=== PATIENT | male | born 1995 | race Caucasian/White ===

== ENCOUNTER 2017-11-30 19:51 | Emergency (ER) | payer SELFPAY ==
[2017-11-30 19:52] VITALS: BP 135/78; PULSE 119; RESP 20; TEMP 36.7; O2SAT 99; BMI 25.4
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
[2017-11-30] MEDS: Acetaminophen 500 MG Tablet 1000 MG PO (21:42)
[2017-11-30 21:43] VITALS: PULSE 73; RESP 16; O2SAT 100
--- NOTE | 2017-11-30 21:45 | ED.RN ---
THIS NURSE REVIEWED D/C INSTRUCTIONS WITH PT AND FAMILY. PT VERBALIZED UNDERSTANDING OF INSTRUCTIONS. PT DENIES FURTHER NEEDS OR QUESTIONS AT THIS TIME. PT AMBULATES FROM ROOM ON OWN WITHOUT ASSISTANCE FROM STAFF
== END 2017-11-30 21:46 | disposition home or self-care (01) ==
LOC: ED 21:15
PROVIDERS: Emergency Provider Emergency Medicine; Family Provider Pediatrics; PCP Pediatrics
DX: S70.11XA Contusion of right thigh, initial encounter (principal); V19.9XXA Pedal cyclist (driver) (passenger) injured in unspecified traffic accident, initial encounter; Y93.9 Activity, unspecified; Y92.9 Unspecified place or not applicable; J45.909 Unspecified asthma, uncomplicated
CPT/HCPCS: 73552; 99283

== ENCOUNTER 2019-05-04 18:06 | Emergency (ER) | payer BC, SELFPAY ==
[2019-05-04 18:07] VITALS: BP 143/85; PULSE 92; RESP 16; TEMP 36.6; O2SAT 100; BMI 25.0
--- NOTE | 2019-05-04 19:00 | ED.DCSUM_ITS ---
History of Present Illness Chief Complaint: Eye Problem Informant: Patient Location: Left Eye Onset: Yesterday Context: Sudden Onset Timing: Continuous Associated Symptoms - Eyes: Foreign body sensation, Pain, Redness History of injury: Uncertain Visual correction: None Narrative: Is a 23-year-old male with history of superior mesenteric artery syndrome resenting with left eye pain. Patient states he is been doing a lot of renovations on his house and fell like he got something in his eye last night. He rinsed it out a couple times. Patient states he went to bed even though was still hurting him. He is continued to have a foreign body sensation and pain in his eye. He states it feels like there something moving at the bottom of his eye. He does not wear corrective lenses. He does not have an eye doctor. Denies any other complaints or concerns at this time. He denies any vision changes. Past Medical History - Allergies and Home Meds Allergies/Adverse Reactions: Allergies No Known Allergies Allergy (Verified 05/04/19 18:09) Primary Care Physician: Feliz Hernández MD [STAFF PHYSICIAN] - Sam Amin MD [Primary Care Provider] - Past Medical History: None Surgical History: noncontributory Lives: With Family Smoking Status: Never smoker Review of Systems General: Denies: Chills, Fever, Sweats Eyes: Reports: - - left eye pain. Denies: Visual changes - bilaterally, Diplopia ENT: Denies: Rhinorrhea, Sore throat Cardiovascular: Denies: Chest pain, Palpitations Respiratory: Denies: Dyspnea, Cough, Dyspnea on exertion Gastrointestinal: Denies: Nausea, Vomiting Skin: Denies: Rash, Wounds Neurological: Denies: Headache, Weakness, Numbness Physical Exam Visual Acuity: right: 20/15, left: 20/20 Visual Acuity: Uncorrected Eyelid: No foreign body, Erythema left eyelid Right Conjunctiva/Sclera: Normal inspection, No foreign body Left Conjunctiva/Sclera: No foreign body, Diffuse focal injection Left Cornea: Tetracaine instilled, Fluorescein dye uptake, Foreign body - over iris at 9 O'clock position , - - negative Layla sign Extraocular Motion: Normal exam, No pain Pupils: Normal accomodation, PERRL Anterior chamber: Normal exam Vital Signs/Narrative: Vital Signs Temp Pulse Resp BP Pulse Ox 05/04/19 18:07 97.8 F 92 16 143/85 H 100 General: Well nourished, Well developed Head: Normocephalic, Atraumatic ENT: Moist mucous membranes, No rhinorrhea Neck: Supple, Nontender Cardiovascular: Regular rate, Regular rhythm, No murmurs Respiratory: No distress, CTA bilaterally, Chest nontender Skin: Normal color, No rash Neurological: Alert, Oriented x3, Cranial nerves II-XII grossly intact, Normal Strength, Normal Sensation Psychological: Normal affect Diagnostic/Tx/Re-eval - Treatment and Re-Evaluation Foreign body removal: Cotton tip swab Residual rust ring: Yes Removed with eye jed: No Tetracaine: left eye Antibiotic: left eye - Medical Decision Making She is evaluated for 1 day of eye pain. Patient is a foreign body seen in his eye. This is removed with a cotton tip applicator. There does seem to be residual ring around it. Patient is a negative Layla sign. He is placed on antibiotic drops and then ointment for the evening. He is given ophthalmology to follow-up with. Patient's symptoms completely improved with tetracaine. Patient is counseled on signs and symptoms requiring return to the emergency room. Patient verbalizes agreement and understand this plan. Patient discharged home in stable and improved condition. ED Disposition - Plan for ED Patient: Disposition: Home or Assisted Living Diagnosis: Foreign body in cornea, left eye, initial encounter Instructions: CORNEAL FOREIGN BODY, Removed Referrals: Sam Amin MD [Primary Care Provider] - Feliz Hernández MD [STAFF PHYSICIAN] - Additional Instructions: Apply 1 to 2 drops ciprofloxacin eyedrops to the left eye 5 times a day for 5 days. At nighttime apply a small ribbon of the erythromycin ointment before you go to bed to the left eye. Follow-up for repeat eye exam. Call on Monday to [facility] an appointment to be seen as soon as possible. Return the emergency with any worsening symptoms. Take ibuprofen as needed for pain.
[2019-05-04] MEDS: Fluorescein 1 MG STRIP 1 STRIP OPHTHALMIC (19:04)
[2019-05-04] MEDS: Tetracaine 0.5% Ophthalmic Bottle OPHTHALMIC (19:04)
[2019-05-04] MEDS: Ciprofloxacin 0.3% 2.5ml Bottle 1 DRP LEFT EYE (20:21)
[2019-05-04 20:24] VITALS: RESP 18
== END 2019-05-04 20:26 | disposition home or self-care (01) ==
PROVIDERS: Emergency Provider Emergency Medicine; PCP Pediatrics
DX: T15.02XA Foreign body in cornea, left eye, initial encounter (principal); X58.XXXA Exposure to other specified factors, initial encounter; Y93.9 Activity, unspecified; Y92.9 Unspecified place or not applicable; K55.1 Chronic vascular disorders of intestine
CPT/HCPCS: 99283

== ENCOUNTER → 2019-11-12 17:36 | Outpatient (CLI) | payer SELFPAY | LOC: MTDU 17:36 | PROVIDERS: PCP Pediatrics | DX: Z20.828 Contact with and (suspected) exposure to other viral communicable diseases (principal) | CPT/HCPCS: 87635; 94799; U0003 ==

== ENCOUNTER 2020-10-25 11:14 | Emergency (ER) | payer MEDICAID, SELFPAY ==
[2020-10-25 11:14] VITALS: BP 157/116; PULSE 98; RESP 16; TEMP 36.6; O2SAT 100; BMI 31.1
--- NOTE | 2020-10-25 12:05 | EX.ED.DYSGE1 ---
HPI History of Present Illness Chief Complaint: Ear Problem Informant: patient Onset/Context/Timing Onset: Month(s) Current Severity: Mild Maximum Severity: Mild Narrative Narrative: Patient presents secondary to bilateral ear pain. He states he had left greater than right ear pain for the past couple of months. Over the last day or so the left ear has become much more severe and today he had some bleeding noted from the left ear. He denies congestion or other URI symptoms. PFSH PFSH no medical history Home Medications amoxicillin 1,000 mg PO Q12H #14 tab 10/25/20 [Rx Last Taken Unknown] [id number]-[id number]-WI-thonzonium [Cortisporin-TC] 4 drp LEFT EAR TID #10 ml 10/25/20 [Rx Last Taken Unknown] Allergy/AdvReac Type Severity Reaction Status Date / Time No Known Allergies Allergy Verified 10/25/20 11:16 Social History Smoking Status: Never smoker ROS ROS ED Constitutional Constitutional ED: Denies chills or fever(s) Eyes Eyes: Denies change in vision ENT ENT ED: Reports ear pain bilateral; Denies sore throat Cardiovascular Cardiovascular: Denies chest pain Respiratory/Chest Respiratory/Chest: Denies cough or dyspnea Gastrointestinal Gastrointestinal: Denies abdominal pain, diarrhea, nausea or vomiting Genitourinary Genitourinary ED: Denies dysuria Musculoskeletal Musculoskeletal: Denies back pain Integumentary Denies rash Neurologic Neurologic: Denies headache(s) or weakness Psychiatric Psychiatric: Denies anxiety or depression Allergic/Immunologic Allergic/Immunologic ED: Denies urticaria EXAM Physical Exam Const Vital Signs: 10/25/20 11:14 10/25/20 12:31 Temperature 97.8 F Temperature Source Temporal Pulse Rate 98 88 Respiratory Rate 16 17 Blood Pressure 157/116 H Blood Pressure Mean 129 Pulse Ox 100 100 Oxygen Delivery Method Room Air Positive well nourished and well developed General Appearance ED: well developed HEENT Reports normocephalic and head/scalp atraumatic HEENT Narrative: Right TM is clear. Right canal reveals mild erythema. Left TM is dull with fluid behind. The left canal is edematous and swollen. Eyes PERRL and EOMs intact bilaterally Neck supple Chest Wall inspection of chest normal and palpation of chest normal Resp normal respiratory effort and clear to auscultation bilaterally Cardio regular rate and regular rhythm GI normal to inspection, nondistended, normoactive bowel sounds Palpation: soft Extremity normal to inspection Neuro oriented x3 and no sensory deficits noted Sensorium / Orientation: alert Motor Exam: strength 5/5 throughout Psych mental status grossly normal Skin no rashes or lesions noted MDM MDM MDM Narrative Medical decision making narrative: Patient was given amoxicillin ordered Cortisporin drops. As advised the hospital does not currently have any Cortisporin drops. Prescriptions for both are supplied to the patient. He will follow up with his PCP. Discharge Plan Triage Chief Complaint: Ear Problem ED Provider: Roseline Archer Dx/Rx/DC Orders Clinical Impression: Otitis media, Left otitis externa Instructions: ED Otitis Media Antibiotic ..., ED External Ear Infection (Adult) Prescriptions: New amoxicillin 500 mg tablet 1,000 mg PO Q12H Qty: 14 RF: 0 Cortisporin-TC 3.3-3-10-0.5 mg/mL drops,suspension 4 drp LEFT EAR TID Qty: 10 RF: 0 Primary Care Provider: Sam Amin Referrals: Sam Amin MD [Primary Care Provider] - 1 Week if not improving Activity Restrictions/Additional Instructions: Eardrops to affected ear 4 times daily until symptoms improved x24 hours. Disposition Disposition: Home, Self Care Discharge Date/Time: 10/25/20 12:32
[2020-10-25 12:31] VITALS: PULSE 88; RESP 17; O2SAT 100
[2020-10-25] MEDS: AMOXICILLIN 500 MG CAPSULE 1000 MG PO (12:31)
== END 2020-10-25 12:32 | disposition home or self-care (01) ==
PROVIDERS: Emergency Provider Emergency Medicine; PCP Pediatrics
DX: H66.92 Otitis media, unspecified, left ear (principal); H60.92 Unspecified otitis externa, left ear
CPT/HCPCS: 99283

== ENCOUNTER 2022-02-22 16:16 | Emergency (ER) | payer MEDICAID, SELFPAY ==
[2022-02-22 16:17] VITALS: BP 136/93; PULSE 119; RESP 19; TEMP 36.3; O2SAT 100; BMI 29.8
[2022-02-22 16:19] VITALS: BP 132/88; PULSE 100; RESP 18; TEMP 36.6; O2SAT 100
--- NOTE | 2022-02-22 16:56 | EDS_ITS ---
HPI History of Present Illness Chief Complaint: Cold Sx Informant: patient Onset/Context/Timing Onset: Days (4 days) Context: Gradual Onset Current Severity: Moderate Maximum Severity: Moderate Narrative Narrative: Patient presents with 4-day history of cough and congestion with body aches. He has had subjective fever and chills at home. His mom tested positive for influenza. He was seen at the [facility] yesterday where he tested negative for flu and COVID. He was given prescriptions for albuterol and Tessalon Perles. Patient states he supposed to work tonight but still feels measurable. He has had nausea and diarrhea as well. [facility] Medical History Asthma Superior mesenteric artery syndrome Home Medications amoxicillin 500 mg tablet 1,000 mg PO Q12H #14 tabs 10/25/20 [Rx Last Taken Unknown] [id number]-vpxagt-QW-thonzonm 3.3 mg-3 mg-10 mg-0.5 mg/mL ear drops,susp (Cortisporin-TC) 4 drp LEFT EAR TID #10 mL 10/25/20 [Rx Last Taken Unknown] albuterol sulfate 90 mcg/actuation aerosol inhaler 2 puff inhalation 4XD PRN Wheezing 02/22/22 [History Last Taken Unknown] Allergy/AdvReac Type Severity Reaction Status Date / Time No Known Allergies Allergy Verified 02/22/22 16:44 Surgical History no surgical history Social History Smoking Status: Never smoker ROS ROS ED Constitutional Constitutional ED: Reports chills, fever(s) and subjective Eyes Eyes: Denies change in vision or discharge from eye(s) ENT ENT ED: Reports sore throat and other Details: Congestion ; Denies discharge from eye(s) or rhinorrhea Cardiovascular Cardiovascular: Denies chest pain or palpitations Respiratory/Chest Respiratory/Chest: Reports cough and sputum; Denies dyspnea Gastrointestinal Gastrointestinal: Reports diarrhea and nausea; Denies abdominal pain or vomiting Genitourinary Genitourinary ED: Denies dysuria Musculoskeletal Musculoskeletal: Reports myalgias; Denies back pain or extremity pain Integumentary Denies Abrasions or rash Neurologic Neurologic: Reports weakness; Denies headache(s) Psychiatric Psychiatric: Denies anxiety or depression Allergic/Immunologic Allergic/Immunologic ED: Denies lip swelling or urticaria EXAM Physical Exam Const Vital Signs: 02/22/22 16:17 02/22/22 16:49 02/22/22 16:19 Temperature 97.3 F L 97.9 F Temperature Source Temporal Temporal Pulse Rate 119 H 100 Respiratory Rate 19 H 18 Respiratory Effort Normal Non-Labored Respiratory Pattern Normal Blood Pressure 136/93 H 132/88 H Blood Pressure Mean 107 102 Pulse Ox 100 100 Oxygen Delivery Method Room Air Room Air Positive well nourished and well developed General Appearance ED: well developed HEENT Reports normocephalic and head/scalp atraumatic HEENT Narrative: 2+ tonsils bilaterally with mild erythema. Uvula midline. Eyes PERRL and EOMs intact bilaterally Neck supple Chest Wall inspection of chest normal and palpation of chest normal Resp normal respiratory effort and clear to auscultation bilaterally Cardio regular rate and regular rhythm GI normal to inspection, nondistended, normoactive bowel sounds Palpation: soft Extremity normal to inspection Neuro oriented x3 and no sensory deficits noted Sensorium / Orientation: alert Motor Exam: strength 5/5 throughout Psych mental status grossly normal Skin no rashes or lesions noted MDM MDM MDM Narrative Medical decision making narrative: Chest x-ray obtained. Swab for COVID and influenza ordered. Patient given Naprosyn and Zofran. Lab Data Attestation: I reviewed the patient's lab results. Radiography Chest X-Ray - ED: 1 View, Read by ED Physician, Normal, Heart, Lungs and Mediastinum Diagnostic Testing: Clinical Impression(s) from Imaging Studies Chest X-Ray 02/22/22 17:20 IMPRESSION: Normal x-ray examination of the chest. Electronically Signed: Ye Carrillo MD at 18:00 EST , Treatment and Re-Evaluation Narrative: Chest x-ray per my interpretation reveals no focal infiltrate. Swab for COVID and influenza are negative. Patient's girlfriend was also here being seen is positive for strep. Patient does have a sore throat with erythema. I will go ahead and treat him for strep as well. Discharge Plan Triage Chief Complaint: Cold Sx ED Provider: Roseline Archer Dx/Rx/DC Orders Clinical Impression: Strep pharyngitis, Viral syndrome Instructions: ED Pharyngitis, Strep (Presumed), ED Viral Syndrome (Adult) Prescriptions: No Action amoxicillin 500 mg tablet 1,000 mg PO Q12H Qty: 14 0RF Cortisporin-TC 3.3-3-10-0.5 mg/mL drops,suspension 4 drp LEFT EAR TID Qty: 10 0RF albuterol sulfate 90 mcg/actuation HFA aerosol inhaler 2 puff INHALATION 4XD PRN (Reason: Wheezing) Label Comments: Inhale 2 Puffs as instructed every 4 hours as needed for wheezing/shortness of breath. Stand Alone Forms: ED Work / School Excuse Primary Care Provider: Care Physician,No Primary Referrals: Sanna Baron MD [Med Staff - Brokerage Office Manager] - As Needed Care Physician,No Primary [Primary Care Provider] - Disposition Disposition: Home, Self Care
[2022-02-22] MEDS: Ondansetron ODT 4 MG Tablet PO (17:06)
[2022-02-22] MEDS: Naproxen 500 MG Tablet PO (17:06)
--- NOTE | 2022-02-22 17:20 | RAD_ITS ---
STUDY: X-RAY CHEST REASON FOR EXAM: Male, 26 years old. cough TECHNIQUE: Single AP portable view of the chest. COMPARISON: 01/09/2013 FINDINGS: The lungs are clear and expanded. There is no demonstrated pleural abnormality. Normal size heart. Normal mediastinum and diamond. Normal visualized pulmonary arteries. Normal visualized aortic arch and descending thoracic aorta. Normal visualized thoracic spine. Normal visualized ribs, clavicles, and shoulders. There is no demonstrated abnormality of the visualized soft tissue structures of the upper abdomen. RAD/Chest 1 View (Portable) IMPRESSION: Normal x-ray examination of the chest. Electronically Signed: Ye Carrillo MD at 18:00 EST ,
[2022-02-22 18:27] VITALS: BP 122/75; PULSE 75; RESP 18; TEMP 37.1; O2SAT 99
[2022-02-22] MEDS: Penicillin G Benzathine 1.2 MU/2 ML Syringe IM (18:50)
== END 2022-02-22 18:56 | disposition home or self-care (01) ==
PROVIDERS: Emergency Provider Emergency Medicine; Visit Provider Emergency Medicine
DX: J02.0 Streptococcal pharyngitis (principal); B34.9 Viral infection, unspecified
CPT/HCPCS: 71045; 87428; 96372; 99283

== ENCOUNTER 2022-09-02 08:00 | Emergency (ER) | payer MEDICAID, SELFPAY ==
[2022-09-02 08:01] VITALS: BP 161/112; PULSE 97; RESP 14; TEMP 36.6; O2SAT 98
--- NOTE | 2022-09-02 08:30 | EX.ED.VIS.EY ---
HPI History of Present Illness Chief Complaint: Eye Problem Informant: patient Narrative Narrative: Patient has had cold symptoms along with wheezing and dyspnea for the past 2 weeks he has asthma but does not know where his albuterol inhaler is. He states he is not getting better and it has been 2 entire weeks. This is the first time he is presented for care. In the last 3 to 4 days now his right eye is sore and red and appears to be swollen with some occasional discharge. He states he was working in the [employer] department at a [facility] facility recently, no known sick contacts but he notes that people are there often. [facility] Medical History Asthma Superior mesenteric artery syndrome Home Medications amoxicillin 500 mg tablet 1,000 mg PO Q12H #14 tabs 10/25/20 [Rx Last Taken Unknown] rowpowcl-ycipbb-UK-thonzonm 3.3 mg-3 mg-10 mg-0.5 mg/mL ear drops,susp (Cortisporin-TC) 4 drp LEFT EAR TID #10 mL 10/25/20 [Rx Last Taken Unknown] albuterol sulfate 90 mcg/actuation aerosol inhaler 2 puff inhalation 4XD PRN Wheezing 02/22/22 [History Last Taken Unknown] albuterol sulfate 90 mcg/actuation aerosol inhaler (Ventolin HFA) 1 - 2 puff inhalation Q4H PRN PRN Wheezing ##1 09/02/22 [Rx Last Taken Unknown] levofloxacin 500 mg tablet 500 mg PO DAILY #7 tabs 09/02/22 [Rx Last Taken Unknown] prednisone 10 mg tablet 10 mg PO UD #33 tabs 09/02/22 [Rx Last Taken Unknown] Allergy/AdvReac Type Severity Reaction Status Date / Time No Known Allergies Allergy Verified 09/02/22 08:01 Surgical History no surgical history Social History Smoking Status: Never smoker ROS ROS ED Constitutional Constitutional ED: Reports fever(s) and subjective; Denies chills ENT ENT ED: Reports ear pain bilateral (Chronic unchanged), nasal congestion, rhinorrhea, sinus pain, sinus pressure and sore throat Cardiovascular Cardiovascular: Denies chest pain or palpitations Respiratory/Chest Respiratory/Chest: Reports cough, dyspnea and wheezing Gastrointestinal Gastrointestinal: Denies abdominal pain, diarrhea, nausea or vomiting Genitourinary Genitourinary ED: Denies dysuria or hematuria Musculoskeletal Musculoskeletal: Denies myalgias or neck pain Integumentary Denies abscess or rash Neurologic Neurologic: Reports headache(s); Denies paresthesias or weakness Psychiatric Psychiatric: Denies depression or suicidal thoughts Endocrine Endocrinology: Denies polydipsia or polyuria EXAM Physical Exam Const Vital Signs: 09/02/22 08:01 Temperature 98 F Temperature Source Temporal Pulse Rate 97 Respiratory Rate 14 Blood Pressure 161/112 H Blood Pressure Mean 128 Pulse Ox 98 Oxygen Delivery Method Room Air Positive well nourished and well developed General Appearance ED: well developed and NAD HEENT Reports moist mucous membranes HEENT Narrative: Posterior pharynx clear. Right eye conjunctivitis with some mild chemosis no active purulent discharge no preseptal cellulitis/swelling, no enophthalmos or proptosis. Cornea grossly normal and anterior chamber deep. Left eye is unremarkable. normocephalic and atraumatic Throat: Negative for posterior oropharynx abnormal Eyes PERRL and EOMs intact bilaterally Neck no lymphadenopathy, supple and no meningeal signs Resp normal respiratory effort Resp Narrative: End expiratory wheezes throughout all garces otherwise clear and equal bilaterally, no respiratory distress. Cardio no murmurs Rate: regular rate Rhythm: regular rhythm Extremity normal to inspection Neuro oriented x3, CN's II-XII intact bilaterally and no sensory deficits noted Sensorium / Orientation: alert Motor Exam: strength 5/5 throughout Skin no wounds Lesions: no lesions Rashes: no rashes MDM MDM MDM Narrative Medical decision making narrative: My concern is that he has adenovirus given the conjunctivitis, however he has sinus tenderness in the ethmoids and maxillary, no purulent discharge to make this obviously look bacterial. He needs asthma coverage, I am going to cover him for bacterial coverage given the duration of symptoms, to cover atypicals, however he understands that it is possible this is all viral. Discharge Plan Triage Chief Complaint: Eye Problem ED Provider: Pavel Stephen Dx/Rx/DC Orders Clinical Impression: URI (upper respiratory infection), Acute conjunctivitis of right eye, Acute asthma exacerbation Instructions: ED Conjunctivitis, Nonspecific, Asthma Prescriptions: New prednisone 10 mg tablet 10 mg PO UD Qty: 33 0RF Rx Instructions: Take 4 tablets daily for 3 days, then 3 daily for 3 days, then 2 daily for 3 days, then 1 a day for 3 days then 1 QOD for 3 doses. levofloxacin [levofloxacin] 500 mg tablet 500 mg PO DAILY Qty: 7 0RF albuterol sulfate [Ventolin HFA] 90 mcg/actuation HFA aerosol inhaler 1 - 2 puff inhalation Q4H PRN PRN (Reason: Wheezing) Qty: 1 0RF No Action amoxicillin 500 mg tablet 1,000 mg PO Q12H Qty: 14 0RF Cortisporin-TC 3.3-3-10-0.5 mg/mL drops,suspension 4 drp LEFT EAR TID Qty: 10 0RF albuterol sulfate 90 mcg/actuation HFA aerosol inhaler 2 puff INHALATION 4XD PRN (Reason: Wheezing) Label Comments: Inhale 2 Puffs as instructed every 4 hours as needed for wheezing/shortness of breath. Primary Care Provider: Sangeetha Peoples Referrals: Sangeetha Peoples PA [Primary Care Provider] - 1 Week if not improving Activity Restrictions/Additional Instructions: Use the eye ointment 3 times daily right eye as needed Disposition Disposition: Home, Self Care
[2022-09-02] MEDS: Neomycin/Bacitracin/Polymyxin Opth. Ointment 1 APPLIC RIGHT EYE (08:46)
== END 2022-09-02 08:47 | disposition home or self-care (01) ==
PROVIDERS: Emergency Provider Emergency Medicine; PCP Physician Assistant; Visit Provider Emergency Medicine
DX: J06.9 Acute upper respiratory infection, unspecified (principal); J45.901 Unspecified asthma with (acute) exacerbation; H10.31 Unspecified acute conjunctivitis, right eye; Z79.899 Other long term (current) drug therapy
CPT/HCPCS: 99282

== ENCOUNTER 2022-12-09 11:59 | Emergency (ER) | payer MEDICAID, SELFPAY ==
[2022-12-09 11:59] VITALS: BP 127/92; PULSE 92; RESP 18; TEMP 36; O2SAT 100; BMI 30.5
--- NOTE | 2022-12-09 13:21 | EDS_ITS ---
HPI HPI - URI History of Present Illness Chief Complaint: Ear Problem Informant: patient Narrative Narrative: 27-year-old male with history of severe allergies and ongoing left ear pain presenting with worsening right ear pain. States he follows with her ENT. He is asked if he needs tubes in the past was told no. He is currently getting weekly allergy shots. He states yesterday suddenly he started having severe right ear pain. He is taken Tylenol with no relief. He feels like he cannot pop his ear and there is a lot of pressure in his ear. Denies any vision changes. Denies any fever or chills. Denies feeling sick or like he is has a cold prior to this. He uses an xkhq-smv-rdiusad allergy medicine as well as daily Flonase. He also uses nasal spray as needed that has menthol in it. He tried using a Verena pot last night and then suddenly his right ear could not pop and his pain became much more severe. ROS ROS ED Constitutional Constitutional ED: Denies chills or fever(s) Eyes Eyes: Denies blurry vision or change in vision ENT ENT ED: Reports ear pain bilateral (R>L) Cardiovascular Cardiovascular: Denies chest pain Respiratory/Chest Respiratory/Chest: Denies cough Gastrointestinal Gastrointestinal: Denies nausea or vomiting Integumentary Denies rash Neurologic Neurologic: Reports headache(s); Denies paresthesias or weakness Hematologic/Lymphatic Hematologic/Lymphatic: Denies easy bleeding or easy bruising [facility] Medical History Asthma Superior mesenteric artery syndrome Home Medications qsidagkc-uwpkad-CB-thonzonm 3.3 mg-3 mg-10 mg-0.5 mg/mL ear drops,susp (Cortisporin-TC) 4 drp LEFT EAR TID #10 mL 10/25/20 [Rx Last Taken Unknown] albuterol sulfate 90 mcg/actuation aerosol inhaler 2 puff inhalation 4XD PRN Wheezing 02/22/22 [History Last Taken Unknown] albuterol sulfate 90 mcg/actuation aerosol inhaler (Ventolin HFA) 1 - 2 puff inhalation Q4H PRN PRN Wheezing ##1 09/02/22 [Rx Last Taken Unknown] prednisone 10 mg tablet 10 mg PO UD #33 tabs 09/02/22 [Rx Last Taken Unknown] amoxicillin 875 mg-potassium clavulanate 125 mg tablet 1 tab PO BID #20 tabs 12/09/22 [Rx Last Taken Unknown] Allergy/AdvReac Type Severity Reaction Status Date / Time No Known Allergies Allergy Verified 12/09/22 11:59 Social History Smoking Status: Never smoker EXAM Physical Exam Const Vital Signs: 12/09/22 11:59 Temperature 96.8 F L Temperature Source Temporal Pulse Rate 92 Respiratory Rate 18 Blood Pressure 127/92 H Blood Pressure Mean 103 Pulse Ox 100 Oxygen Delivery Method Room Air Positive well nourished and well developed General Appearance ED: well developed and NAD HEENT Reports moist mucous membranes HEENT Narrative: Normal Left TM and canal Right TM-small white exudative spots on the tympanic membrane. There is complete opacification of the TM with serosanguineous fluid. Not able to visualize any of the bony structures. There is bulging of the TM and injection. Normal canal. No lesions noted in the ear canal. No vescicles noted on the TM. normocephalic Face and Sinus: Negative for sinus tenderness Throat: posterior oropharynx normal Eyes PERRL and EOMs intact bilaterally Neck supple and no meningeal signs Resp normal respiratory effort Cardio no murmurs Rate: regular rate Rhythm: regular rhythm Extremity normal to inspection Neuro oriented x3 and CN's II-XII intact bilaterally Sensorium / Orientation: alert Psych mental status grossly normal Mood & Affect: anxious Skin Lesions: no lesions Rashes: no rashes MDM MDM MDM Narrative Medical decision making narrative: Evaluated for ongoing left ear pain but is really here because of sudden onset of pretty severe right ear pain. His vital signs are normal. Physical exam consistent with an effusion and likely acute otitis media of the right ear. Will be started on antibiotics. Patient states amoxicillin does not work with me but is amenable to taking Augmentin. Is given first dose in the emergency room. He is established with Dr. Chandler and states he will follow closely with them. I did career and guidance counselor that it is possible given the pressure behind his ear that he might have a spontaneous rupture of his tympanic membrane. If that is the case it will drain however he should continue the antibiotics and just follow-up outpatient with ENT. Counseled to alternate ibuprofen and Tylenol for pain. I did perform Trev technique for patient for comfort and counseled on how to do it at home. Given return precautions to the ER. Discharged home in stable condition. Discharge Plan Triage Chief Complaint: Ear Problem ED Provider: Nadine Pérez Dx/Rx/DC Orders Clinical Impression: Acute right otitis media Instructions: ED Otitis Media Antibiotic ... Prescriptions: New amoxicillin-pot clavulanate 875-125 mg tablet 1 tab PO BID Qty: 20 0RF Discontinued amoxicillin 500 mg tablet 1,000 mg PO Q12H Qty: 14 0RF levofloxacin [levofloxacin] 500 mg tablet 500 mg PO DAILY Qty: 7 0RF No Action Cortisporin-TC 3.3-3-10-0.5 mg/mL drops,suspension 4 drp LEFT EAR TID Qty: 10 0RF albuterol sulfate 90 mcg/actuation HFA aerosol inhaler 2 puff INHALATION 4XD PRN (Reason: Wheezing) Patient Comments: Inhale 2 Puffs as instructed every 4 hours as needed for wheezing/shortness of breath. prednisone 10 mg tablet 10 mg PO UD Qty: 33 0RF Rx Instructions: Take 4 tablets daily for 3 days, then 3 daily for 3 days, then 2 daily for 3 days, then 1 a day for 3 days then 1 QOD for 3 doses. albuterol sulfate [Ventolin HFA] 90 mcg/actuation HFA aerosol inhaler 1 - 2 puff inhalation Q4H PRN PRN (Reason: Wheezing) Qty: 1 0RF Primary Care Provider: Sangeetha Peoples Referrals: George Gramajo MD [Med Staff - Active Staff] - 1-2 Days if not improving Sangeetha Peoples PA [Primary Care Provider] - Activity Restrictions/Additional Instructions: Continue to alternate ibuprofen and Tylenol every 4 hours for pain. Please follow-up with your ENT doctor as we discussed. Return to the ER if you have a progression or worsening of your symptoms. You can try bgqk-huy-axulwos decongestant such as Tylenol Cold and flu as well to help with the pressure in your ear. Disposition Disposition: Home, Self Care
[2022-12-09] MEDS: Ibuprofen 600 MG Tablet PO (13:39)
[2022-12-09] MEDS: Amox/Clavulanate 875 MG Tablet PO (13:39)
== END 2022-12-09 13:40 | disposition home or self-care (01) ==
PROVIDERS: Emergency Provider Emergency Medicine; PCP Physician Assistant; Visit Provider Emergency Medicine
DX: H66.91 Otitis media, unspecified, right ear (principal)
CPT/HCPCS: 99283

== ENCOUNTER 2023-11-14 21:29 | Emergency (ER) | payer MEDICAID, SELFPAY ==
[2023-11-14 21:30] VITALS: BP 169/108; PULSE 104; RESP 18; TEMP 36.6; O2SAT 99; BMI 30.9
--- NOTE | 2023-11-14 22:26 | EX.ED.DYSGE1 ---
HPI History of Present Illness Chief Complaint: Ear Problem Narrative Narrative: 28-year-old male with past medical history of chronic bilateral ear pain and drainage presents with cotton tip swab stuck in his right ear. He relates history that for 4 years he has had chronic ear pain bilaterally. Over the last year and a half he has been seen by Dr. Gramajo who put tubes in his ears. He is unsure if they are still present because they may have fallen out. He describes chronic pain and drainage from his bilateral ears. Usually puts hydrogen peroxide and likes to Deacon's ears. Today, used a cotton tip swab which got stuck in his right ear. He has an appointment with his ENT doctor later on this week. He presents mainly because of the foreign body in his right ear. He states he has been on multiple doses of antibiotics throughout the last year and a half, the last being a few months ago. However, he continues to have drainage. [facility] Medical History Superior mesenteric artery syndrome Asthma Home Medications ?Medication ?Instructions ?Recorded ?Last Taken ?Type qwpgnsqf-svordq-FV-thonzonm 3.3 4 drp LEFT EAR TID #10 mL 10/25/20 Unknown Rx mg-3 mg-10 mg-0.5 mg/mL ear drops,susp (Cortisporin-TC) albuterol sulfate 90 mcg/actuation 2 puff inhalation 4XD PRN Wheezing 02/22/22 Unknown History aerosol inhaler albuterol sulfate 90 mcg/actuation 1 - 2 puff inhalation Q4H PRN PRN 09/02/22 Unknown Rx aerosol inhaler (Ventolin HFA) Wheezing ##1 prednisone 10 mg tablet 10 mg PO UD #33 tabs 09/02/22 Unknown Rx amoxicillin 875 mg-potassium 1 tab PO BID #20 tabs 12/09/22 Unknown Rx clavulanate 125 mg tablet Allergy/AdvReac Type Severity Reaction Status Date / Time No Known Allergies Allergy Verified 11/14/23 21:30 Social History Smoking Status: Never smoker ROS ROS ED ROS Narrative Constitutional: No fever, no chills. HEENT: No sore throat. No neck pain. No loss of vision. No rhinorrhea. Bilateral ear pain and drainage. Foreign body right ear/cotton tip swab Cardiovascular: No chest pain. No palpitations. No pedal edema. Respiratory: No cough, no shortness of breath. Abdominal: No abdominal pain. No nausea. No vomiting. Genitourinary: No dysuria. No hematuria. Musculoskeletal: No myalgias. No arthralgias. Neurologic: No headaches. No dizziness. No lightheadedness. Skin: No rash. No change in color. Psychiatric: No depression. No anxiety. EXAM Physical Exam Narrative Exam Narrative: Afebrile. Vital signs noted. Regular rate and rhythm with intermittent tachycardia. Lungs clear to auscultation bilaterally. Abdomen soft nontender. Nontoxic-appearing. Inspection of the right ear with otoscope does show cotton within the right ear canal. No mastoid tenderness or erythema. No pain with movement of auricle. Const Vital Signs: 11/14/23 21:30 Temperature 97.9 F Temperature Source Temporal Pulse Rate 104 H Respiratory Rate 18 Blood Pressure 169/108 H Blood Pressure Mean 128 Pulse Ox 99 Oxygen Delivery Method Room Air MDM MDM MDM Narrative Medical decision making narrative: I discussed with the patient that I do not think antibiotics are immediately indicated. He has a foreign body in his right ear which attempt will be made to remove. With RN assistance holding otoscope light, tweezers were used to remove the cotton swab tip. Reexamination afterwards shows erythema in the canal with pain with movement of the tragus. I feel he has more of an otitis externa which in review of his chart he has had on the left previously. He was told to stop taking in his ears. He will be given Cortisporin otic drops and will follow-up with his religion department chair on Monday, 3 days from now. I feel he can be discharged safely home with follow-up. Return instructions were reviewed. Disposition is discharged home in stable condition. History & Record Review Discussion w/independent historian: Patient Additional record(s) reviewed:: Prior ED visit Discharge Plan Triage Chief Complaint: Ear Problem ED Provider: Miah Sharp Dx/Rx/DC Orders Prescriptions: No Action Cortisporin-TC 3.3-3-10-0.5 mg/mL drops,suspension 4 drp LEFT EAR TID Qty: 10 0RF albuterol sulfate 90 mcg/actuation HFA aerosol inhaler 2 puff INHALATION 4XD PRN (Reason: Wheezing) Patient Comments: Inhale 2 Puffs as instructed every 4 hours as needed for wheezing/shortness of breath. prednisone 10 mg tablet 10 mg PO UD Qty: 33 0RF Rx Instructions: Take 4 tablets daily for 3 days, then 3 daily for 3 days, then 2 daily for 3 days, then 1 a day for 3 days then 1 QOD for 3 doses. albuterol sulfate [Ventolin HFA] 90 mcg/actuation HFA aerosol inhaler 1 - 2 puff inhalation Q4H PRN PRN (Reason: Wheezing) Qty: 1 0RF amoxicillin-pot clavulanate 875-125 mg tablet 1 tab PO BID Qty: 20 0RF Primary Care Provider: Sangeetha Peoples Referrals: Sangeetha Peoples PA [Primary Care Provider] - Print Language: Danish
[2023-11-14 22:35] VITALS: BP 144/96; PULSE 88; RESP 16; TEMP 36.1; O2SAT 98
[2023-11-14] MEDS: Neomycin/Polymyxin/Dexameth 5ML OPTH.BTL 4 DRP OTIC (23:02)
== END 2023-11-14 23:03 | disposition home or self-care (01) ==
PROVIDERS: Emergency Provider Emergency Medicine; PCP Physician Assistant; Visit Provider Emergency Medicine
DX: T16.1XXA Foreign body in right ear, initial encounter (principal); W44.8XXA Other foreign body entering into or through a natural orifice, initial encounter
CPT/HCPCS: 99282

== ENCOUNTER 2023-12-17 19:15 | Emergency (ER) | payer MEDICAID, SELFPAY ==
[2023-12-17 19:15] VITALS: BP 150/111; PULSE 90; RESP 20; TEMP 36.4; O2SAT 100; BMI 32.0
--- NOTE | 2023-12-17 20:36 | EX.ED.DYSGE1 ---
HPI History of Present Illness Chief Complaint: Ear Problem Detail of Chief Complaint: Bilateral ear pain with drainage predominantly from right side Informant: patient Onset/Context/Timing Onset: Yesterday Context: Sudden Onset Timing: Continuous Quality: Pain Location: Bilateral Current Severity: Moderate Maximum Severity: Severe Worsened by: Worse on the right. There is drainage. Relieved by: Nothing Associated Symptoms Associated Symptoms: No fever, chills night sweats Narrative Narrative: Patient is a 28-year-old male. He is under the care of Dr. George Gramajo. He has been seen Dr. Gramajo for 4 years. He does have tubes bilaterally. He denies fever, chills night sweats. He denies headache. Denies neck pain or neck stiffness. Prior similar symptoms: Yes Recent Illness/Hospitalization: No PFSH PFS Medical History Superior mesenteric artery syndrome Asthma Home Medications ?Medication ?Instructions ?Recorded ?Last Taken ?Type obftwqqx-dqwbls-JL-thonzonm 3.3 4 drp LEFT EAR TID #10 mL 10/25/20 Unknown Rx mg-3 mg-10 mg-0.5 mg/mL ear drops,susp (Cortisporin-TC) albuterol sulfate 90 mcg/actuation 2 puff inhalation 4XD PRN Wheezing 02/22/22 Unknown History aerosol inhaler albuterol sulfate 90 mcg/actuation 1 - 2 puff inhalation Q4H PRN PRN 09/02/22 Unknown Rx aerosol inhaler (Ventolin HFA) Wheezing ##1 prednisone 10 mg tablet 10 mg PO UD #33 tabs 09/02/22 Unknown Rx amoxicillin 875 mg-potassium 1 tab PO BID #20 tabs 12/09/22 Unknown Rx clavulanate 125 mg tablet amoxicillin 875 mg-potassium 875 mg PO Q12H #20 TABLETS 12/17/23 Unknown Rx clavulanate 125 mg tablet hydrocodone-acetaminophen 5-325mg 1 tab PO Q6H PRN PRN Pain 3 days 12/17/23 Unknown Rx 5mg-325mg #10 TABLETS Allergy/AdvReac Type Severity Reaction Status Date / Time No Known Allergies Allergy Verified 11/14/23 21:30 Social History Smoking Status: Never smoker ROS ROS ED Constitutional Constitutional ED: Denies chills, fever(s) or subjective Eyes Eyes: Denies blurry vision or change in vision ENT ENT ED: Reports ear pain bilateral; Denies rhinorrhea or sore throat Cardiovascular Cardiovascular: Denies chest pain Respiratory/Chest Respiratory/Chest: Denies cough or dyspnea Gastrointestinal Gastrointestinal: Denies nausea or vomiting Musculoskeletal Musculoskeletal: Denies neck pain Integumentary Denies rash EXAM Physical Exam Const Vital Signs: 12/17/23 19:15 Temperature 97.5 F L Temperature Source Temporal Pulse Rate 90 Respiratory Rate 20 H Blood Pressure 150/111 H Blood Pressure Mean 124 Pulse Ox 100 Oxygen Delivery Method Room Air Positive well nourished, well developed and unkempt Constitutional Narrative: Patient appears uncomfortable. He is tearful. General Appearance ED: unkempt and well developed; Negative for NAD or pallor HEENT Reports moist mucous membranes HEENT Narrative: Posterior pharynx is normal. Uvula midline. Nares patent. No tenderness over the frontal maxillary sinus unable to see the tube on the right side. There is purulent drainage. Tube on the left is in place. There is no obvious drainage. There is dullness of the tympanic membrane. Eyes PERRL and EOMs intact bilaterally Neck no lymphadenopathy, supple and no JVD Resp normal respiratory effort Cardio regular rate and regular rhythm Neuro oriented x3 and CN's II-XII intact bilaterally Sensorium / Orientation: alert Psych Appearance: unkempt Skin no rashes or lesions noted, no wounds and skin turgor normal General Skin Exam: elasticity normal; Negative for jaundice or pallor MDM MDM MDM Narrative Medical decision making narrative: Patient with supportive otitis. Will place on antibiotics and pain medicine. He will be discharged home to follow-up with his optical lab technician. Discharge Plan Triage Chief Complaint: Ear Problem ED Provider: Jay Frederick Dx/Rx/DC Orders Clinical Impression: Otitis media, acute suppurative, Acute pain of left ear Instructions: ED Otitis Media Adult Prescriptions: New hydrocodone-acetaminophen 5-325 mg tablet 1 tab PO Q6H PRN PRN (Reason: Pain) 3 Days Qty: 10 0RF amoxicillin-pot clavulanate 875-125 mg tablet 875 mg PO Q12H Qty: 20 0RF No Action Cortisporin-TC 3.3-3-10-0.5 mg/mL drops,suspension 4 drp LEFT EAR TID Qty: 10 0RF albuterol sulfate 90 mcg/actuation HFA aerosol inhaler 2 puff INHALATION 4XD PRN (Reason: Wheezing) Patient Comments: Inhale 2 Puffs as instructed every 4 hours as needed for wheezing/shortness of breath. prednisone 10 mg tablet 10 mg PO UD Qty: 33 0RF Rx Instructions: Take 4 tablets daily for 3 days, then 3 daily for 3 days, then 2 daily for 3 days, then 1 a day for 3 days then 1 QOD for 3 doses. albuterol sulfate [Ventolin HFA] 90 mcg/actuation HFA aerosol inhaler 1 - 2 puff inhalation Q4H PRN PRN (Reason: Wheezing) Qty: 1 0RF amoxicillin-pot clavulanate 875-125 mg tablet 1 tab PO BID Qty: 20 0RF Primary Care Provider: Sangeetha Peoples Referrals: George Gramajo MD [Med Staff - Active Staff] - 3-5 Days Sangeetha Peoples PA [Primary Care Provider] - Print Language: St Helenian Disposition Disposition: Home, Self Care
[2023-12-17] MEDS: Amox/Clavulanate 875 MG Tablet PO (20:57)
[2023-12-17] MEDS: HYDROcodone Bitartrate/Apap 5/325 Tablet PO (20:57)
[2023-12-17 20:59] VITALS: BP 142/98; PULSE 74; RESP 18; TEMP 36.6; O2SAT 97
== END 2023-12-17 21:00 | disposition home or self-care (01) ==
LOC: ED 21:00
PROVIDERS: Emergency Provider Emergency Medicine; PCP Physician Assistant; Visit Provider Emergency Medicine
DX: H66.001 Acute suppurative otitis media without spontaneous rupture of ear drum, right ear (principal); H92.02 Otalgia, left ear
CPT/HCPCS: 99282

== ENCOUNTER → 2024-02-01 | Outpatient (CLI) | payer MEDICAID, SELFPAY ==
--- NOTE | 2024-02-01 14:45 | CT_ITS ---
STUDY: CT MAXILLOFACIAL SINUSES REASON FOR EXAM: Male, 28 years old. SINUSITIS. Fluid draining from both ureters. RADIATION DOSAGE (If Supplied By Facility): CTDIvol = ( 28.14 ) mGy, DLP = ( 696.94 ) mGycm TECHNIQUE: The patient was scanned in a multi detector CT scanner. High resolution axial imaging was performed without the administration of intravenous contrast material. Sagittal and coronal images were reconstructed. Individualized dose optimization techniques were used for this CT. COMPARISON: None. FINDINGS: Small benign-appearing submental lymph nodes. FRONTAL SINUSES: Normal aeration, without mucosal inflammatory disease. ETHMOIDAL SINUSES: Mucosal thickening of the right ethmoid sinus. MAXILLARY SINUSES: Partial opacification of the left maxillary sinus. SPHENOIDAL SINUSES: Normal aeration, without mucosal inflammatory disease. There is patency of the bilateral maxillary infundibuli with normal uncinate processes, ethmoid bullae, and hiatus semilunaris. Normal bilateral middle turbinates. There is hypertrophy of the left inferior nasal turbinate. Minimal septal deviation towards the right side of the midline. There is patency of the bilateral nasal airways. The visualized osseous structures are normal. The visualized bilateral orbital contents are normal. CT/Sinus/Facial Bone IMPRESSION: Partial opacification left maxillary sinus. Mucosal thickening of the right posterior ethmoid sinus. Electronically Signed: Asad Murcia MD at 15:06 EST ,
== END | disposition home or self-care (01) ==
LOC: CT 14:44
PROVIDERS: PCP Physician Assistant; Referring Provider Otolaryngology; Visit Provider Otolaryngology
DX: J32.8 Other chronic sinusitis (principal)
CPT/HCPCS: 70486

== ENCOUNTER → 2024-03-22 | Outpatient (CLI) | payer MEDICAID, SELFPAY | END | disposition home or self-care (01) | PROVIDERS: PCP Physician Assistant; Referring Provider Otolaryngology; Visit Provider Otolaryngology | DX: H92.10 Otorrhea, unspecified ear (principal) | CPT/HCPCS: 87070; 87075; 87077; 87186; 87205 ==

== ENCOUNTER 2024-09-02 09:15 | Emergency (ER) | payer MEDICAID, SELFPAY ==
[2024-09-02 09:15] VITALS: BP 154/108; PULSE 69; RESP 16; TEMP 36.6; O2SAT 100; BMI 31.8
--- NOTE | 2024-09-02 09:25 | EX.ED.VIS.EY ---
HPI History of Present Illness Chief Complaint: Eye Problem Narrative Narrative: 28-year-old male past medical history of seasonal allergies presents with swelling of the sclera of his right lateral eye that he has noticed since this morning. He relates history that his allergies have been acting up over time. He describes nasal drainage. Yesterday, everything was fine, but this morning he awoke and his right eye was reddened more so than his left eye. He felt there was an eyelash in it, and he rubbed his eye. He has noticed swelling of the white part of his right lateral eye. He denies any fevers or chills, no loss of vision. He does not wear contact lenses. He was concerned because of the swelling of his right eye. [facility] Medical History Superior mesenteric artery syndrome Asthma Home Medications ?Medication ?Instructions ?Recorded ?Last Taken ?Type mmlvxmfe-gvlsbj-IS-thonzonm 3.3 4 drp LEFT EAR TID #10 mL 10/25/20 Unknown Rx mg-3 mg-10 mg-0.5 mg/mL ear drops,susp (Cortisporin-TC) albuterol sulfate 90 mcg/actuation 2 puff inhalation 4XD PRN Wheezing 02/22/22 Unknown History aerosol inhaler albuterol sulfate 90 mcg/actuation 1 - 2 puff inhalation Q4H PRN PRN 09/02/22 Unknown Rx aerosol inhaler (Ventolin HFA) Wheezing ##1 prednisone 10 mg tablet 10 mg PO UD #33 tabs 09/02/22 Unknown Rx amoxicillin 875 mg-potassium 1 tab PO BID #20 tabs 12/09/22 Unknown Rx clavulanate 125 mg tablet amoxicillin 875 mg-potassium 875 mg PO Q12H #20 TABLETS 12/17/23 Unknown Rx clavulanate 125 mg tablet hydrocodone-acetaminophen 5-325mg 1 tab PO Q6H PRN PRN Pain 3 days 12/17/23 Unknown Rx 5mg-325mg #10 TABLETS Allergy/AdvReac Type Severity Reaction Status Date / Time No Known Allergies Allergy Verified 09/02/24 09:15 Social History Smoking Status: Never smoker ROS ROS ED ROS Narrative Review of systems positive for bilateral eye redness right greater than left. Previous foreign body sensation right eye. Positive swelling of sclera of right eye laterally. No loss of vision. Positive rhinorrhea. EXAM Physical Exam Narrative Exam Narrative: Afebrile. Vital signs noted. Nontoxic-appearing. HEENT examination shows bilateral conjunctival injection with positive chemosis of the right lateral sclera. PERRL, EOMI. Positive nasal congestion with mild rhinorrhea. Airway patent. No drooling or trismus. Cardiovascular examination regular rate and rhythm. Lungs clear to auscultation bilaterally. Abdomen soft and nontender. Neurological examination nonfocal, nonlateralizing. Const Vital Signs: 09/02/24 09:15 Temperature 97.8 F Temperature Source Oral Pulse Rate 69 Respiratory Rate 16 Blood Pressure 154/108 H Blood Pressure Mean 123 Pulse Ox 100 Oxygen Delivery Method Room Air MDM MDM MDM Narrative Medical decision making narrative: Differential diagnosis includes but not limited to viral conjunctivitis versus seasonal allergies with chemosis versus foreign body. Visual acuity will be obtained and tetracaine instilled in the right eye as well. On fluorescein examination there is no evidence of a Layla sign or corneal abrasion noted. I do not feel antibiotic drops are indicated. I was able to discuss patient with Dr. Kendrick who recommended xcsj-azn-vuymcdb antihistamine drops such as Pataday or Zaditor. He can also take oral antihistamines. It was not felt that steroids are indicated currently. He will follow-up in 3 to 5 days if no improvement with ophthalmology. I feel he be discharged safely home with follow-up. Return instructions reviewed. Disposition is discharged home in stable condition. History & Record Review Discussion w/independent historian: Patient Management Discussion w/another healthcare provider: Neonatal Pediatric Nurse (Dr. Kendrick, ophthalmology) Discharge Plan Triage Chief Complaint: Eye Problem ED Provider: Miah Sharp Dx/Rx/DC Orders Clinical Impression: Allergic conjunctivitis, Chemosis of right conjunctiva Prescriptions: No Action Cortisporin-TC 3.3-3-10-0.5 mg/mL drops,suspension 4 drp LEFT EAR TID Qty: 10 0RF albuterol sulfate 90 mcg/actuation HFA aerosol inhaler 2 puff INHALATION 4XD PRN (Reason: Wheezing) Patient Comments: Inhale 2 Puffs as instructed every 4 hours as needed for wheezing/shortness of breath. prednisone 10 mg tablet 10 mg PO UD Qty: 33 0RF Rx Instructions: Take 4 tablets daily for 3 days, then 3 daily for 3 days, then 2 daily for 3 days, then 1 a day for 3 days then 1 QOD for 3 doses. albuterol sulfate [Ventolin HFA] 90 mcg/actuation HFA aerosol inhaler 1 - 2 puff inhalation Q4H PRN PRN (Reason: Wheezing) Qty: 1 0RF amoxicillin-pot clavulanate 875-125 mg tablet 1 tab PO BID Qty: 20 0RF hydrocodone-acetaminophen 5-325 mg tablet 1 tab PO Q6H PRN PRN (Reason: Pain) 3 Days Qty: 10 0RF amoxicillin-pot clavulanate 875-125 mg tablet 875 mg PO Q12H Qty: 20 0RF Primary Care Provider: Care Physician,No Primary Referrals: Michael Kendrick MD [Med Staff - Active Staff] - 3-5 Days if not improving Sangeetha Peoples PA [Non-Staff] - Activity Restrictions/Additional Instructions: Take oral antihistamine such as Benadryl, Claritin, or Zyrtec. Beware that they may make you drowsy. Additionally, you can use eyedrops such as Pataday or Zaditor twice a day. If no improvement, follow-up with ophthalmology in 3 to 5 days. Return with loss of vision, new or worsening symptoms. Print Language: Malay Disposition Disposition: Home, Self Care
[2024-09-02 10:28] VITALS: BP 130/78; PULSE 72; RESP 16; TEMP 36.6; O2SAT 100
[2024-09-02] MEDS: Tetracaine 0.5% Ophthalmic Bottle 1 DRP OPHTHALMIC (10:31)
[2024-09-02] MEDS: Fluorescein 1 MG STRIP 1 STRIP OPHTHALMIC (10:31)
== END 2024-09-02 10:32 | disposition home or self-care (01) ==
PROVIDERS: Emergency Provider Emergency Medicine; Visit Provider Emergency Medicine
DX: H10.10 Acute atopic conjunctivitis, unspecified eye (principal); H11.421 Conjunctival edema, right eye
CPT/HCPCS: 99283